=== PATIENT | male | born 1995 | race Caucasian/White ===

== ENCOUNTER 2019-09-22 21:15 | Emergency (ER) | payer OTHER ==
[~2019-09-22] VITALS: Ht 182.9 cm; Wt 78.9 kg
[2019-09-22 21:33] VITALS: Ht 182.9 cm; Wt 78.9 kg
[2019-09-22 23:30] VITALS: BP 108/63
== END 2019-09-22 23:30 | disposition left against medical advice (07) ==
LOC: ED 21:15
DX: R07.89 Other chest pain (principal); M25.562 Pain in left knee; M79.10 Myalgia, unspecified site

== ENCOUNTER 2020-11-07 23:09 | Emergency (ER) | payer SELFPAY ==
[~2020-11-07] VITALS: Ht 182.9 cm; Wt 81.2 kg
[2020-11-07 23:21] VITALS: Ht 182.9 cm; Wt 81.2 kg
[2020-11-07] MEDS ORDERED: BACTRIM DS1 TAB PO (23:24)
[2020-11-07] MEDS ORDERED: KEF500 PO (23:24)
[2020-11-08 00:14] VITALS: BP 144/83
== END 2020-11-08 00:14 | disposition home or self-care (01) ==
LOC: ED 23:09
DX: L03.116 Cellulitis of left lower limb (principal); Z88.6 Allergy status to analgesic agent

== ENCOUNTER 2020-11-09 03:13 | Emergency (ER) | payer MEDICAID ==
[~2020-11-09] VITALS: Ht 182.9 cm; Wt 78.5 kg
[~2020-11-09 03:13] MED LIST: BACTRIM DS1 TAB PO; KEF500 PO
[2020-11-09 03:28] VITALS: Ht 182.9 cm; Wt 78.5 kg
[2020-11-09 06:48] VITALS: BP 126/88
== END 2020-11-09 06:48 | disposition home or self-care (01) ==
LOC: ED 03:13
DX: R06.00 Dyspnea, unspecified (principal); L03.116 Cellulitis of left lower limb; Z88.6 Allergy status to analgesic agent